=== PATIENT | female | born 1980 | race Caucasian/White ===

== ENCOUNTER 2018-08-17 16:34 | Emergency (ER) | payer MEDICAID ==
[~2018-08-17] VITALS: Ht 167.6 cm; Wt 57.0 kg
[2018-08-17] MEDS ORDERED: MORPHINE SULFATE 4 MG/ML, 1ML ONE ×2 (17:53→18:55)
[2018-08-17] MEDS ORDERED: PROCHLORPERAZINE 5 MG/ML, 2ML ONE (17:53)
[2018-08-17] MEDS ORDERED: PROCHLORPERAZINE 5 MG/ML, 2ML IVPush ONE (18:00)
[2018-08-17] MEDS ORDERED: MORPHINE SULFATE 4 MG/ML, 1ML IVPush ONE (18:00)
--- NOTE | 2018-08-17 18:03 | NUR ---
PT IN GOWN, WARM BLANKETS PROVIDED, AND BEAR PAW PROVIDED. PT MEDICATED PER ORDER.
[2018-08-17 18:25] LABS: BASOPHILS # (AUTO) 0.06 x10^3/uL (0-0.1); BASOPHILS % (AUTO) 1 % (0-1); EOSINOPHILS # (AUTO) 0.16 x10^3/uL (0-0.4); EOSINOPHILS % (AUTO) 2 % (1-7); LYMPHOCYTES # (AUTO) 3.38 x10^3/uL (1-3.4); LYMPHOCYTES % (AUTO) 32 % (22-44); MD NO; MEAN CORPUSCULAR HEMOGLOBIN 30.9 pg (27.0-34.8); MEAN CORPUSCULAR VOLUME 93.4 fL (80-100); MEAN PLATELET VOLUME 8.6 fL (7.4-10.4); MONOCYTES # (AUTO) 0.66 x10^3/uL (0.2-0.8); MONOCYTES % (AUTO) 6 % (2-9); NEUTROPHILS # (AUTO) 6.17 x10^3/uL (1.8-6.8); NEUTROPHILS % (AUTO) 59 % (42-75); PLATELET COUNT 196 x10^3/uL (130-400); RED BLOOD COUNT 4.29 x10^6/uL (3.82-5.3)
[2018-08-17 18:26] LABS: MICROSCOPIC AUTO
[2018-08-17 18:31] LABS: CULTURE INDICATED? NO
--- NOTE | 2018-08-17 18:32 | NUR ---
PT IN ROOM RESTING COMFORTABLY. PT REFUSING TO GIVE REGISTRATION INFORMATION. PT EDUCATED ON THE NEED FOR THIS INFO. PT AGREES TO PROVIDE. PT PLAYING ON PHONE IN ROOM AND WATCHING TV. PT UP TO RESTROOM AND WALKS WITH A STEADY GAIT ANF DOES NOT APPEAR TO BE IN ANY DISTRESS.
--- NOTE | 2018-08-17 18:35 | NUR ---
LATE NOTE 1803. IN ROOM TO ROBERTA. PT REQUESTED MORE FENTANYL BY NAME STATING THE SUBASSEMBLY ASSEMBLER GAVE ME IT.
[2018-08-17 18:36] LABS: ALBUMIN 3.5 g/dL (3.4-5.0); ANION GAP 3 mmol/L (5-15); CALCIUM 8.3 mg/dL (8.5-10.1); CHLORIDE 115 mmol/L (98-107)
[2018-08-17 18:41] LABS: ALANINE AMINOTRANSFERASE 15 U/L (12-78); ALKALINE PHOSPHATASE 66 U/L (45-117); BILIRUBIN,TOTAL 0.3 mg/dL (0.2-1.0); CREATININE 0.68 mg/dL (0.55-1.02); TOTAL PROTEIN 6.8 g/dL (6.4-8.2)
--- NOTE | 2018-08-17 18:46 | NUR ---
REPORT TO DICK LUI
[2018-08-17] MEDS ORDERED: DIPHENHYDRAMINE 50 MG/ML, 1ML ONE (19:07)
--- NOTE | 2018-08-17 19:15 | NUR ---
PT MEDICATED PER COMPLAINT OF INCREASING PAIN. PT THEN COMPLAINING OF SIDE EFFECGTS SHE RELATES TO THE COMPAZINE. PT REQUESTING HUSAM. INFORMED. WHEN THIS RN RETURNED TO ROOM WITH ANNE PT NOW IS CT.
--- NOTE | 2018-08-17 19:25 | NUR ---
PT RETURNED FROM CT. PT SHOWING NO SIGNS OF ANXIETY, SOB, SHAKINESS OR OTHER SIGNS OF SIDE EFFECTS FROM COMPAZINE HOWEVER PT CONTINUES TO DEMAND BENADRYL. PT MEDICATED PER AUG.
[2018-08-17] MEDS ORDERED: MORPHINE SULFATE 4 MG/ML, 1ML IVPush PRN (19:30)
[2018-08-17] MEDS ORDERED: DIPHENHYDRAMINE 50 MG/ML, 1ML IVPush ONE (19:30)
[2018-08-17 20:14] VITALS: BP 108/74
== END 2018-08-17 20:16 | disposition home or self-care (01) ==
LOC: ED 18:15
DX: R10.84 Generalized abdominal pain (principal); R11.2 Nausea with vomiting, unspecified; R19.7 Diarrhea, unspecified; Z90.89 Acquired absence of other organs; Z90.710 Acquired absence of both cervix and uterus
CPT/HCPCS: 36415; 74176; 80053; 81001; 83690; 84703; 85025; 93005; 96374; 96375; 96376; 99284; J0780; J1200

== ENCOUNTER 2018-08-18 09:17 | Emergency (ER) | payer MEDICAID ==
[~2018-08-18] VITALS: Ht 167.6 cm; Wt 59.0 kg
[2018-08-18 09:28] VITALS: BP 139/83
[2018-08-18 09:50] LABS: CULTURE INDICATED? YES; MICROSCOPIC AUTO
[2018-08-18 10:29] LABS: BASOPHILS # (AUTO) 0.09 x10^3/uL (0-0.1); BASOPHILS % (AUTO) 1 % (0-1); EOSINOPHILS # (AUTO) 0.07 x10^3/uL (0-0.4); EOSINOPHILS % (AUTO) 1 % (1-7); LYMPHOCYTES # (AUTO) 2.53 x10^3/uL (1-3.4); LYMPHOCYTES % (AUTO) 26 % (22-44); MD NO; MEAN CORPUSCULAR HEMOGLOBIN 30.1 pg (27.0-34.8); MEAN CORPUSCULAR HGB CONC 32.5 g/dL (32.4-35.8); MEAN CORPUSCULAR VOLUME 92.8 fL (80-100); MEAN PLATELET VOLUME 8.4 fL (7.4-10.4); MONOCYTES % (AUTO) 5 % (2-9); NEUTROPHILS # (AUTO) 6.46 x10^3/uL (1.8-6.8); NEUTROPHILS % (AUTO) 67 % (42-75); PLATELET COUNT 220 x10^3/uL (130-400); RED BLOOD COUNT 4.48 x10^6/uL (3.82-5.3); RED CELL DISTRIBUTION WIDTH 13.9 % (9.6-15.2)
--- NOTE | 2018-08-18 10:31 | NUR ---
md to bedside for assessment. awaiting lab results.
[2018-08-18] MEDS ORDERED: ONDANSETRON ODT 4 MG ONE (10:38)
[2018-08-18] MEDS ORDERED: ACETAMINOPHEN 500 MG TABLET ONE (10:39)
[2018-08-18 10:41] LABS: ALBUMIN 3.7 g/dL (3.4-5.0); ANION GAP 6 mmol/L (5-15); CALCIUM 9.2 mg/dL (8.5-10.1); CHLORIDE 112 mmol/L (98-107)
[2018-08-18 10:44] LABS: ALANINE AMINOTRANSFERASE 16 U/L (12-78); ALKALINE PHOSPHATASE 71 U/L (45-117); BILIRUBIN,TOTAL 0.3 mg/dL (0.2-1.0); CREATININE 0.79 mg/dL (0.55-1.02); TOTAL PROTEIN 6.9 g/dL (6.4-8.2)
--- NOTE | 2018-08-18 10:55 | NUR ---
report form [facility]. connected to monitors. vss. pt up self to rr wtih steady gait. no needs at this time.
[2018-08-18] MEDS ORDERED: ONDANSETRON ODT 4 MG PO ONE (11:00)
[2018-08-18] MEDS ORDERED: ACETAMINOPHEN 500 MG TABLET PO ONE (11:00)
== END 2018-08-18 11:37 | disposition home or self-care (01) ==
LOC: ED 11:24
DX: K52.9 Noninfective gastroenteritis and colitis, unspecified (principal); F17.200 Nicotine dependence, unspecified, uncomplicated
CPT/HCPCS: 36415; 80053; 81001; 83690; 85025; 87086; 93005; 99284; Q0162